=== PATIENT | male | born 1960 | race Two or more races ===

== ENCOUNTER → 2024-11-18 09:06 | Outpatient (REF) | payer MEDICARE, OTHER, SELFPAY ==
[2024-11-18 10:38] LABS: Hematocrit 38.2 % (39.0-52.0); Hemoglobin 13.2 g/dL (13.0-18.0); Mean Corp Hgb Conc. 34.6 g/dL (33.0-37.0); Mean Corpuscular Volume 104.1 fL (80.0-94.0); Platelet Count 133 10^3/uL (130-400); Red Cell Dist. Width 13.3 % (11.5-14.5)
[2024-11-18 11:03] LABS: Blood Urea Nitrogen 7 mg/dl (9-20); Calcium 8.6 mg/dl (8.4-10.2); Carbon Dioxide 36 mmol/L (22-30); Chloride 98 mmol/L (98-107); Glucose 94 mg/dl (70-99); Potassium 4.3 mmol/L (3.5-5.1); Sodium 137 mmol/L (135-145); eGFR > 60.00
== END ==
LOC: SDSPAT 09:06
PROVIDERS: ATTENDING PHYSICIAN Specialist; FAMILY PHYSICIAN Student in an Organized Health Care Education/Training Program
DX: Z01.818 Encounter for other preprocedural examination (principal)
CPT/HCPCS: 36415; 80048; 85027; 93005

== ENCOUNTER 2024-11-27 06:09 | Day surgery (SDC) | payer MEDICARE, OTHER, SELFPAY ==
[2024-11-18 13:47] VITALS: BMI 24.0
[2024-11-27 10:50] VITALS: BP 152/85
[2024-11-27] MEDS: NORMOSOL-R/PLASMALYTE-A 1000 IV (10:50)
[2024-11-27 11:00] VITALS: BMI 24.0
[2024-11-27 11:45] VITALS: BP 126/85; BP 152/85
[2024-11-27 12:00] VITALS: BP 140/84
[2024-11-27 12:05] VITALS: BP 140/84
[2024-11-27 12:15] VITALS: BP 135/86
[2024-11-27 12:20] VITALS: BP 135/86
== END 2024-11-27 13:03 | disposition home or self-care (01) ==
LOC: SDS 06:09
PROVIDERS: ATTENDING PHYSICIAN Specialist
DX: R97.20 Elevated prostate specific antigen [PSA] (principal); N52.01 Erectile dysfunction due to arterial insufficiency
CPT/HCPCS: 55700; 76998; 88305; 88344; J1580